=== PATIENT | male | born 1990 | race Caucasian/White ===

== ENCOUNTER 2022-06-21 22:28 | Emergency (ER) | payer SELFPAY ==
[~2022-06-21] VITALS: Ht 188 cm; Wt 104.3 kg
[2022-06-21 23:03] VITALS: O2SAT 100
[2022-06-21] MEDS ORDERED: MELOXICAM7.5 MG PO (23:29)
[2022-06-21] MEDS ORDERED: ACETAMINOPHEN-1 EAC4 PO (23:29)
== END 2022-06-21 23:37 | disposition home or self-care (01) ==
LOC: ER 22:32
DX: M54.9 Dorsalgia, unspecified (principal); F17.210 Nicotine dependence, cigarettes, uncomplicated
CPT/HCPCS: 99282